=== PATIENT | male | born 1960 | race Caucasian/White ===

== ENCOUNTER 2022-06-03 11:22 | Emergency (ER) | payer MEDICAID ==
[~2022-06-03] VITALS: Ht 167.6 cm; Wt 75.0 kg
[~2022-06-03 11:22] MED LIST: AMLO10TA80 PO; ASPI-1406 MT; LISI20TA31 PO
[2022-06-03 11:25] VITALS: BP 164/81
[2022-06-03] MEDS ORDERED: B25 MT (11:35)
[2022-06-03] MEDS ORDERED: CEPH500C2 MT (11:35)
== END 2022-06-03 11:59 | disposition home or self-care (01) ==
LOC: ER 11:30
DX: L03.113 Cellulitis of right upper limb (principal); I10 Essential (primary) hypertension
CPT/HCPCS: 99281